=== PATIENT | male | born 1940 | race Caucasian/White ===

== ENCOUNTER 2019-08-26 08:18 | Outpatient (CLI) | payer MEDICARE ==
[~2019-08-26 08:18] MED LIST: DOCU-131 PO; MINO100C61 PO; OXYC-302 PO
== END 2019-08-26 23:59 | disposition home or self-care (01) ==
LOC: RAD 08:18
PROVIDERS: ATTEND Urology
DX: C61 Malignant neoplasm of prostate (principal); N32.89 Other specified disorders of bladder
CPT/HCPCS: 51600; 74430; Q9958